=== PATIENT | female | born 1970 | race African-American/Black ===

== ENCOUNTER 2021-01-31 05:23 | Emergency (ER) | payer MEDICAID, OTHER ==
[~2021-01-31] VITALS: Ht 165.1 cm; Wt 89.4 kg
[2021-01-31] MEDS ORDERED: MAG HYDROX/AL HYDROX/SIMETH 30 ML UDC ONE (05:37)
--- NOTE | 2021-01-31 05:39 | NUR ---
CARE INFORMATION ASSOCIATE AT BEDSIDE
[2021-01-31 05:51] LABS: BASOPHILS % (AUTO) 0.5 % (0.0-2.0); EOSINOPHILS % (AUTO) 1.5 % (0.0-6.0); HEMATOCRIT 36 % (33-45); HEMOGLOBIN 11.8 g/dL (11.5-14.8); LYMPHOCYTES # (AUTO) 2.2 K/uL (0.8-4.8); LYMPHOCYTES % (AUTO) 29.2 % (20.0-44.0); MEAN CORPUSCULAR HGB CONC 33 g/dl (31.0-36.0); MEAN CORPUSCULAR VOLUME 86 fL (82-100); MONOCYTES # (AUTO) 0.5 K/uL (0.1-1.30); MONOCYTES % (AUTO) 6.4 % (2.0-12.0); NEUTROPHILS # (AUTO) 4.7 K/uL (1.8-8.9); NEUTROPHILS % (AUTO) 62.4 % (43.0-81.0); PLATELET COUNT (AUTO) 320 K/uL (150-450); RED BLOOD CELL COUNT(AUTO) 4.21 MIL/uL (4.0-5.2); WHITE BLOOD COUNT (AUTO) 7.5 K/uL (4.3-11.0)
[2021-01-31] MEDS ORDERED: MAG HYDROX/AL HYDROX/SIMETH 30 ML UDC PO ONE (06:00)
[2021-01-31 06:04] LABS: ALANINE AMINOTRANSFERASE 18 U/L (12-78); ALBUMIN 3.4 g/dL (3.4-5.0); ALKALINE PHOSPHATASE 63 U/L (46-116); ASPARTATE AMINOTRANSFERASE 12 U/L (15-37); BILIRUBIN,DIRECT 0.1 mg/dL (0.0-0.2); BILIRUBIN,TOTAL 0.2 mg/dL (0.2-1.0); CALCIUM, SERUM 8.6 mg/dL (8.5-10.1); CARBON DIOXIDE 27 mmol/L (21-32); CHLORIDE 107 mmol/L (98-107); CREATININE 0.8 mg/dL (0.6-1.3); GLUCOSE 99 mg/dL (74-106); SODIUM SERUM 140 mmol/L (136-145); TOTAL PROTEIN, SERUM 7.3 g/dL (6.4-8.2); UREA NITROGEN, BLOOD 15 mg/dL (7-18)
[2021-01-31] MEDS ORDERED: FAMO-131 PO (07:05)
[2021-01-31] MEDS ORDERED: ONDA4TAB5 PO (07:05)
[2021-01-31 07:11] VITALS: BP 127/72
--- NOTE | 2021-01-31 07:11 | NUR ---
Patient discharged to home in stable condition. Written and verbal after care instructions given. Patient verbalizes understanding of instruction.
== END 2021-01-31 07:11 | disposition home or self-care (01) ==
LOC: ER 05:24
DX: K80.20 Calculus of gallbladder without cholecystitis without obstruction (principal); Z90.89 Acquired absence of other organs
CPT/HCPCS: 36415; 71045-TC; 76705-TC; 80048-TC; 80076-TC; 83690-TC; 84484-TC; 85025-TC

== ENCOUNTER 2022-01-24 21:24 | Emergency (ER) | payer MEDICAID ==
[~2022-01-24] VITALS: Ht 165.1 cm; Wt 83.9 kg
[~2022-01-24 21:24] MED LIST: FAMO-131 PO; ONDA4TAB5 PO
--- NOTE | 2022-01-24 21:35 | NUR ---
[id number] FROM HOME C/O MID UPPER ABD PAIN X 30 MIN RAD TO RIGHT FLANK. 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 PT IS A/O X 4 RR EVEN AND UNALBORED, NO SOB NOTED. PATIENT TAKEN TO ER BED 09. PATIENT CONNECTED TO ALL MONITORS.
--- NOTE | 2022-01-24 21:39 | NUR ---
URINE COLLECTED AND SENT TO LAB
--- NOTE | 2022-01-24 21:44 | NUR ---
PT SEEN BY DR. NICOLE PROCTOR
[2022-01-24] MEDS ORDERED: HYDROMORPHONE 1 MG/1 ML DISP.SYRIN ONE (21:49)
[2022-01-24] MEDS ORDERED: ONDANSETRON HCL/PF 4 MG/2 ML VIAL ONE (21:49)
--- NOTE | 2022-01-24 21:51 | NUR ---
NINFA ORTEGA [phone]
--- NOTE | 2022-01-24 21:54 | NUR ---
EMT AT PT'S BEDSIDE FOR EKG
--- NOTE | 2022-01-24 21:56 | NUR ---
LENS ASSORTER AT PT'S BEDSIDE
[2022-01-24] MEDS ORDERED: ONDANSETRON HCL/PF 4 MG/2 ML VIAL IVP ONE (22:00)
[2022-01-24] MEDS ORDERED: HYDROMORPHONE INJ 2 MG/ML DISP.SYRIN IV ONE (22:00)
[2022-01-24 22:10] LABS: BASOPHILS % (AUTO) 0.3 % (0.0-2.0); EOSINOPHILS % (AUTO) 1.3 % (0.0-6.0); HEMATOCRIT 37 % (33-45); HEMOGLOBIN 12.1 g/dL (11.5-14.8); LYMPHOCYTES # (AUTO) 3.1 K/uL (0.8-4.8); LYMPHOCYTES % (AUTO) 35.3 % (20.0-44.0); MEAN CORPUSCULAR HGB CONC 33 g/dl (31.0-36.0); MEAN CORPUSCULAR VOLUME 85 fL (82-100); MONOCYTES # (AUTO) 0.6 K/uL (0.1-1.30); MONOCYTES % (AUTO) 7.1 % (2.0-12.0); NEUTROPHILS # (AUTO) 4.9 K/uL (1.8-8.9); PLATELET COUNT (AUTO) 313 K/uL (150-450); RED BLOOD CELL COUNT(AUTO) 4.31 MIL/uL (4.0-5.2); WHITE BLOOD COUNT (AUTO) 8.7 K/uL (4.3-11.0)
--- NOTE | 2022-01-24 22:10 | NUR ---
US TECH AT PT'S BEDSIDE
[2022-01-24 22:26] LABS: ALANINE AMINOTRANSFERASE 19 U/L (12-78); ALBUMIN 3.9 g/dL (3.4-5.0); ALKALINE PHOSPHATASE 70 U/L (46-116); ASPARTATE AMINOTRANSFERASE 15 U/L (15-37); BILIRUBIN,DIRECT 0.1 mg/dL (0.0-0.2); BILIRUBIN,TOTAL 0.3 mg/dL (0.2-1.0); CALCIUM, SERUM 9.1 mg/dL (8.5-10.1); CARBON DIOXIDE 28 mmol/L (21-32); CREATININE 0.9 mg/dL (0.6-1.3); GLUCOSE 127 mg/dL (74-106); LIPASE 103 U/L (73-393); TOTAL PROTEIN, SERUM 8.5 g/dL (6.4-8.2); UREA NITROGEN, BLOOD 10 mg/dL (7-18)
[2022-01-24 22:29] LABS: BILIRUBIN,URINE NEGATIVE (NEGATIVE); COLOR,URINE YELLOW (YELLOW); LEUKOCYTE ESTERASE ,URINE NEGATIVE (NEGATIVE); NITRITE, URINE NEGATIVE (NEGATIVE); PROTEIN,URINE NEGATIVE (NEGATIVE); UGLUCOSE NEGATIVE (NEGATIVE); UROBILINOGEN,URINE 0.2 EU/dL (0.2)
[2022-01-24 22:59] LABS: CHLORIDE 103 mmol/L (98-107); POTASSIUM 3.2 mmol/L (3.5-5.1); SODIUM SERUM 139 mmol/L (136-145)
[2022-01-24] MEDS ORDERED: IOHEXOL-350 100 ML VIAL IV ONE (23:54)
[2022-01-24] MEDS ORDERED: IV NS 0.9% 250 ML IV ONE (23:55)
--- NOTE | 2022-01-25 00:15 | NUR ---
PT TAKEN TO RADIOLOGY FOR CTA
--- NOTE | 2022-01-25 01:30 | NUR ---
CALLED [facility] FOR CT READ
--- NOTE | 2022-01-25 03:11 | NUR ---
re called stat rad
[2022-01-25] MEDS ORDERED: TRAM50TA2 PO (03:35)
[2022-01-25] MEDS ORDERED: IBUP-1955 PO (03:35)
--- NOTE | 2022-01-25 03:49 | NUR ---
Patient discharged to home in stable condition. RX Written and verbal after care instructions given. Patient verbalizes understanding of instruction. IV removed. Catheter intact and site benign. Pressure and 4x4 applied to site. No bleeding noted. PT ambulatory with a steady gait
[2022-01-25 03:50] VITALS: BP 119/83
[2022-01-27] MEDS ORDERED: PANT40TA2 PO (12:12)
== END 2022-01-25 03:50 | disposition home or self-care (01) ==
LOC: ER 21:25
DX: R07.89 Other chest pain (principal); K80.50 Calculus of bile duct without cholangitis or cholecystitis without obstruction; Z90.89 Acquired absence of other organs; Z60.2 Problems related to living alone; Z79.899 Other long term (current) drug therapy
CPT/HCPCS: 99285; 96374; 71275; 76705; 71045; 96375; 93005; 85025; 80048; 83690; 80076; 85378; 81003; 36415 ×2; 84484 ×2; J2405; J7050; Q9967; J1170

== ENCOUNTER 2022-01-25 09:29 | Inpatient (IN) | payer MEDICAID ==
[~2022-01-25] VITALS: Ht 165.1 cm; Wt 83.9 kg
[~2022-01-25 09:29] MED LIST changes: +IBUP-1955 PO; +TRAM50TA2 PO
--- NOTE | 2022-01-25 09:35 | NUR ---
DR SPAULDING AT BEDSIDE
[2022-01-25] MEDS ORDERED: PANTOPRAZOLE 40 MG VIAL ONE (09:44)
[2022-01-25] MEDS ORDERED: ONDANSETRON HCL/PF 4 MG/2 ML VIAL ONE (09:44)
[2022-01-25] MEDS ORDERED: HYDROMORPHONE 1 MG/1 ML DISP.SYRIN ONE (09:45)
--- NOTE | 2022-01-25 09:51 | NUR ---
pain meds given as ordered by Dr. Molina
--- NOTE | 2022-01-25 09:57 | NUR ---
KIN SON [phone]
[2022-01-25] MEDS ORDERED: PANTOPRAZOLE 40 MG VIAL IV ONE (10:00)
[2022-01-25] MEDS ORDERED: ONDANSETRON HCL/PF 4 MG/2 ML VIAL IVP ONE (10:00)
[2022-01-25] MEDS ORDERED: HYDROMORPHONE INJ 2 MG/ML DISP.SYRIN IV ONE (10:00)
[2022-01-25] MEDS ORDERED: IV NS 0.9% 1,000 ML BAG IV ONE (10:00)
--- NOTE | 2022-01-25 10:28 | NUR ---
PT TAKEN TO CT VIA I[facility]
[2022-01-25 10:29] LABS: BASOPHILS % (AUTO) 0.3 % (0.0-2.0); EOSINOPHILS % (AUTO) 0.4 % (0.0-6.0); HEMATOCRIT 41 % (33-45); HEMOGLOBIN 13.1 g/dL (11.5-14.8); LYMPHOCYTES # (AUTO) 1.1 K/uL (0.8-4.8); MEAN CORPUSCULAR HGB CONC 32 g/dl (31.0-36.0); MEAN CORPUSCULAR VOLUME 87 fL (82-100); MONOCYTES # (AUTO) 0.6 K/uL (0.1-1.30); MONOCYTES % (AUTO) 6.7 % (2.0-12.0); NEUTROPHILS # (AUTO) 7.4 K/uL (1.8-8.9); NEUTROPHILS % (AUTO) 80.6 % (43.0-81.0); PLATELET COUNT (AUTO) 276 K/uL (150-450); RED BLOOD CELL COUNT(AUTO) 4.67 MIL/uL (4.0-5.2); WHITE BLOOD COUNT (AUTO) 9.1 K/uL (4.3-11.0)
--- NOTE | 2022-01-25 10:41 | NUR ---
PT BROUGHT BACK FROM CT VIA I[facility]
[2022-01-25 10:50] LABS: ALBUMIN 3.7 g/dL (3.4-5.0); BILIRUBIN,DIRECT 0.3 mg/dL (0.0-0.2); BILIRUBIN,TOTAL 0.8 mg/dL (0.2-1.0); CALCIUM, SERUM 9.2 mg/dL (8.5-10.1); CREATININE 0.8 mg/dL (0.6-1.3); TOTAL PROTEIN, SERUM 8.3 g/dL (6.4-8.2)
[2022-01-25 10:57] LABS: POTASSIUM 3.9 mmol/L (3.5-5.1)
[2022-01-25] MEDS ORDERED: PIPERACILLIN /TAZOBACTAM 3.375 G in IV D5W 50 ML IV ONE (12:00)
[2022-01-25] MEDS ORDERED: PIPERACILLIN /TAZOBACTAM 3.375 G VIAL IV ONE (12:00)
--- NOTE | 2022-01-25 12:30 | NUR ---
COVID TEST COLLECTED AND SENT
--- NOTE | 2022-01-25 12:34 | NUR ---
LVM FOR GI TEACHER DANCING.
--- NOTE | 2022-01-25 12:46 | NUR ---
ER MD DR. SPAULDING AND GI MANAGER LOAN DR. SPIVEY CONSULT
--- NOTE | 2022-01-25 13:00 | NUR ---
EPIC CUSTOMER SERVICE AGENT PAGED
--- NOTE | 2022-01-25 14:22 | NUR ---
BED GIVEN [id number] AUDRA
--- NOTE | 2022-01-25 14:30 | NUR ---
[facility]
--- NOTE | 2022-01-25 14:37 | NUR ---
REPORT GIVEN TO AUDRA MERA OF MED-SURG
--- NOTE | 2022-01-25 14:58 | NUR ---
PT TRASNPORTED TO MED SURG FLOOR IN STABLE CONDITION, PT ABLE TO AMBULATE ON HER OWN.
--- NOTE | 2022-01-25 15:00 | NUR ---
RN NOTES RECEIVED PATIENT FROM EMERGENCY DEPARTMENT IN STABLE CONDITION. TRANSFERRED VIA GURNEY. PATIENT ON RA TOLERATING WELL WITH NO S/SX OF RESP DISTRESS OR SOB NOTED. NO COMPLAINT OF PAIN AT THIS TIME. A/O X4. GAMBIAN AND JORDANIAN SPEAKING. SKIN CLEAR AND INTACT. WARM TO TOUCH AND NORMAL COLOR APPROPRIATE TO RACE. L FA G#20 INTACT AND PATENT. SAFETY MEASURES IN PLACE. BED IN LOWEST POSITION, WHEELS LOCKED, SIDE RAILS UP X2, CALL LIGHT WITHIN REACH. WILL CONTINUE TO MONITOR
[2022-01-25 15:45] VITALS: BP 122/69
[2022-01-25] MEDS ORDERED: ONDANSETRON HCL/PF 4 MG/2 ML VIAL IVP PRN (16:30)
[2022-01-25] MEDS ORDERED: IV D5/0.45 NACL 1,000 ML IV PRN (16:30)
--- NOTE | 2022-01-25 17:30 | NUR ---
RN NOTES PATIENT PLACED ON NPO.
[2022-01-25] MEDS ORDERED: PIPERACILLIN /TAZOBACTAM 4.5 G in IV D5W 50 ML IV SCH (18:00)
--- NOTE | 2022-01-25 18:00 | NUR ---
RN NOTES PATIENT STARTED ON FLUIDS. D5 1/2 NS @ 75ML/HR, LEFT FA G#20 INFUSING WELL. WILL CONTINUE TO MONITOR
--- NOTE | 2022-01-25 19:20 | NUR ---
MS/RN OPENING NOTE RECEIVED PATIENT RESTING IN BED. AWAKE, ALERT AND ORIENTED X 4. ABLE TO MAKE NEEDS KNOWN. C/O ABDOMINAL PAIN 01/22 - WILL ADMINISTER PRN PAIN MEDICATION PER MD ORDER. CONTINUES ON ROOM AIR WITH NO S/SX OF RESPIRATORY DISTRESS NOTED. IV ACCESS TO LEFT FOREARM #20G INTACT AND PATENT. CONTINUES ON IVF D5 1/2 NS @ 75ML/HR. CONTINUES ON IV ABX. CONTINUES ON NPO STATUS. PATIENT IS AMBULATORY WITH STEADY GAIT. CALL LIGHT WITHIN REACH. ASPIRATION, FALL AND SAFETY PRECAUTIONS MAINTAINED. ALL NEEDS ATTENDED TO AT THIS TIME.
--- NOTE | 2022-01-25 19:29 | NUR ---
RN NOTES ENDORSED REPORT TO BUSINESS DEVELOPMENT REPRESENTATIVE NURSE FOR RYAN
[2022-01-25] MEDS: MORPHINE SULFATE INJ 2 MG/ML DISP.SYRIN IV PRN (19:39)
--- NOTE | 2022-01-25 19:45 | NUR ---
MS/RN NOTE ADMINISTERED PRN MORPHINE PER MD ORDERS FOR ABDOMINAL PAIN 02/22. ALL NEEDS ATTENDED TO AT THIS TIME.
[2022-01-25 20:00] VITALS: BP 122/79
[2022-01-25] MEDS: PIPERACILLIN /TAZOBACTAM 3.375 G in IV D5W 100 ML IV SCH (20:20)
--- NOTE | 2022-01-25 21:15 | NUR ---
MS/RN NOTE OBTAINED CONSENT FOR POSSIBLE HIDA SCAN TOMORROW AND PLACED IN CHART. PATIENT CURRENTLY ON NPO STATUS.
[2022-01-26] MEDS: PIPERACILLIN /TAZOBACTAM 3.375 G in IV D5W 100 ML IV SCH ×3 (04:18→20:27)
--- NOTE | 2022-01-26 05:30 | NUR ---
MS/RN NOTE PATIENT WITH C/O HEADACHE WITH PAIN LEVEL 3/10. PATIENT DOES NOT WANT MORPHINE AT THIS TIME. CONTINUES ON NPO STATUS. PROVIDED HEAT PACK PER PATIENT REQUEST. ALL NEEDS ATTENDED TO AT THIS TIME.
--- NOTE | 2022-01-26 05:45 | NUR ---
MS/RN NOTE PATIENT WITH C/O NAUSEA. NO VOMITING NOTED. ADMINISTERED PRN ZOFRAN PER MD ORDER. ALL NEEDS ATTENDED TO AT THIS TIME.
[2022-01-26] MEDS: MORPHINE SULFATE INJ 2 MG/ML DISP.SYRIN IV PRN (06:08)
--- NOTE | 2022-01-26 06:15 | NUR ---
MS/RN NOTE PATIENT WITH C/O INCREASED HEADACHE PAIN. PAIN SCALE RATING NOW 8/10. ADMINISTERED PRN MORPHINE PER MD ORDERS.
--- NOTE | 2022-01-26 06:20 | NUR ---
MS/RN CLOSING NOTE PATIENT CURRENTLY SLEEPING IN BED. ALERT AND ORIENTED X 4. ABLE TO MAKE NEEDS KNOWN. DENIES PAIN AT THIS TIME. CONTINUES ON ROOM AIR WITH NO S/SX OF RESPIRATORY DISTRESS NOTED. IV ACCESS TO LEFT FOREARM #20G INTACT AND PATENT. CONTINUES ON IVF D5 1/2 NS @ 75ML/HR. CONTINUES ON IV ABX. CONTINUES ON NPO STATUS. PATIENT IS AMBULATORY WITH STEADY GAIT. CALL LIGHT WITHIN REACH. ASPIRATION, FALL AND SAFETY PRECAUTIONS MAINTAINED. ALL NEEDS ATTENDED TO AT THIS TIME. WILL ENDORSE PLAN OF CARE TO ONCOMING SHIFT RN.
[2022-01-26 06:37] LABS: BASOPHILS % (AUTO) 0.7 % (0.0-2.0); EOSINOPHILS % (AUTO) 1.7 % (0.0-6.0); HEMATOCRIT 36 % (33-45); HEMOGLOBIN 11.7 g/dL (11.5-14.8); LYMPHOCYTES # (AUTO) 1.5 K/uL (0.8-4.8); LYMPHOCYTES % (AUTO) 30.8 % (20.0-44.0); MEAN CORPUSCULAR HGB CONC 33 g/dl (31.0-36.0); MEAN CORPUSCULAR VOLUME 85 fL (82-100); MONOCYTES # (AUTO) 0.4 K/uL (0.1-1.30); MONOCYTES % (AUTO) 7.8 % (2.0-12.0); NEUTROPHILS # (AUTO) 2.9 K/uL (1.8-8.9); PLATELET COUNT (AUTO) 279 K/uL (150-450); RED BLOOD CELL COUNT(AUTO) 4.21 MIL/uL (4.0-5.2); WHITE BLOOD COUNT (AUTO) 4.9 K/uL (4.3-11.0)
[2022-01-26 06:56] LABS: CALCIUM, SERUM 8.8 mg/dL (8.5-10.1); CREATININE 0.8 mg/dL (0.6-1.3); MAGNESIUM 2.1 mg/dL (1.8-2.4); PHOSPHORUS 3.7 mg/dL (2.5-4.9); POTASSIUM 3.6 mmol/L (3.5-5.1)
[2022-01-26 07:20] LABS: THYROID STIMULATING HORMONE 2.58 uIU/mL (0.358-3.74)
--- NOTE | 2022-01-26 07:29 | NUR ---
MS/RN OPENING NOTE RECEIVED PATIENT RESTING IN BED. PATIENT IS ALERT AND ORIENTED X 4. ABLE TO MAKE NEEDS KNOWN . CONTINUES ON ROOM AIR NO S/SX OF RESPIRATORY DISTRESS NOTED. IV ACCESS TO LEFT FOREARM #20G INTACT AND PATENT. CONTINUES ON IVF D5 1/2 NS @ 75ML/HR. NPO . PATIENT IS AMBULATORY . ALL SAFETY MEASURES IN PLACE. CALL LIGHT WITHIN REACH. ASPIRATION, FALL AND SAFETY PRECAUTIONS MAINTAINED. WILL CONTINUE TO MONITOR.
[2022-01-26 08:00] VITALS: BP 122/67
[2022-01-26] MEDS: PANTOPRAZOLE 40 MG VIAL IV SCH (08:03)
[2022-01-26] MEDS: ACETAMINOPHEN 650 MG/20.3 ML UDC NG PRN ×2 (09:30→16:12)
[2022-01-26] MEDS ORDERED: HYDROCODONE/APAP 5/325MG TABLET PO PRN (09:30)
[2022-01-26] MEDS ORDERED: METOCLOPRAMIDE HCL 10 MG/2 ML VIAL IV PRN (09:30)
[2022-01-26] MEDS: Potassium Chloride 10 MEQ in IV D5/ 0.9% NACL 1,000 ML IV SCH ×2 (09:53→20:27)
[2022-01-26 16:07] VITALS: BP_SYST 109; BP_SYST 139; BP_DIAS 62; BP_DIAS 68
--- NOTE | 2022-01-26 18:24 | NUR ---
MS/RN CLOSING NOTE PATIENT RESTING IN BED. PATIENT IS ALERT AND ORIENTED X 4. ABLE TO MAKE NEEDS KNOWN . CONTINUES ON ROOM AIR NO S/SX OF RESPIRATORY DISTRESS NOTED. IV ACCESS TO LEFT FOREARM #20G INTACT AND PATENT. CONTINUES ON IVF KCL 10 MEQ D5 NS @ 100 ML/HR. NPO . PATIENT IS AMBULATORY .HIDA TEST DONE. HUSBANDAT HER BED SIDE. ALL SAFETY MEASURES IN PLACE. CALL LIGHT WITHIN REACH. ASPIRATION, FALL AND SAFETY PRECAUTIONS MAINTAINED. WILL ENDORSE FOR RYAN.
--- NOTE | 2022-01-26 19:20 | NUR ---
MS/RN OPENING NOTE RECEIVED PATIENT RESTING IN BED. AWAKE, ALERT AND ORIENTED X 4. ABLE TO MAKE NEEDS KNOWN. FAMILY AT BEDSIDE. CONTINUES ON ROOM AIR WITH NO S/SX OF RESPIRATORY DISTRESS NOTED. IV ACCESS TO LEFT FOREARM #20G INTACT AND PATENT. CONTINUES ON IVF D5 NS WITH 20MEQ KCL @ 100ML/HR. CONTINUES ON IV ABX. CONTINUES ON NPO STATUS. PATIENT IS AMBULATORY WITH STEADY GAIT. CALL LIGHT WITHIN REACH. ASPIRATION, FALL AND SAFETY PRECAUTIONS MAINTAINED. ALL NEEDS ATTENDED TO AT THIS TIME.
[2022-01-26 20:00] VITALS: BP 148/75
[2022-01-26] MEDS ORDERED: ZOLPIDEM TARTRATE 5 MG TABLET PO PRN (22:00)
[2022-01-27] MEDS: ACETAMINOPHEN 650 MG/20.3 ML UDC NG PRN (04:22)
[2022-01-27] MEDS: PIPERACILLIN /TAZOBACTAM 3.375 G in IV D5W 100 ML IV SCH ×2 (04:22→14:59)
--- NOTE | 2022-01-27 04:43 | NUR ---
MS/RN NOTE PATIENT WITH C/O PAIN TO LEFT FOREARM IV SITE. NO REDNESS OR INFILTRATION NOTED. PATIENT REQUESTING TO HAVE IV SITE CHANGED. INSERTED NEW IV #20G TO RIGHT FOREARM. DISCONTINUED IV TO LEFT FOREARM WITH PRESSURE DRESSING APPLIED. MINIMAL DRAINAGE NOTED. PATIENT TOLERATED WELL.
[2022-01-27] MEDS: Potassium Chloride 10 MEQ in IV D5/ 0.9% NACL 1,000 ML IV SCH (05:52)
[2022-01-27 06:17] LABS: BASOPHILS % (AUTO) 0.4 % (0.0-2.0); EOSINOPHILS % (AUTO) 2.4 % (0.0-6.0); HEMATOCRIT 34 % (33-45); HEMOGLOBIN 11.4 g/dL (11.5-14.8); LYMPHOCYTES # (AUTO) 1.5 K/uL (0.8-4.8); LYMPHOCYTES % (AUTO) 27.6 % (20.0-44.0); MEAN CORPUSCULAR HGB CONC 33 g/dl (31.0-36.0); MEAN CORPUSCULAR VOLUME 85 fL (82-100); MONOCYTES # (AUTO) 0.4 K/uL (0.1-1.30); MONOCYTES % (AUTO) 7.4 % (2.0-12.0); NEUTROPHILS # (AUTO) 3.3 K/uL (1.8-8.9); NEUTROPHILS % (AUTO) 62.2 % (43.0-81.0); PLATELET COUNT (AUTO) 282 K/uL (150-450); RED BLOOD CELL COUNT(AUTO) 4.05 MIL/uL (4.0-5.2); WHITE BLOOD COUNT (AUTO) 5.4 K/uL (4.3-11.0)
--- NOTE | 2022-01-27 06:20 | NUR ---
MS/RN CLOSING NOTE PATIENT CURRENTLY SLEEPING IN BED. ALERT AND ORIENTED X 4. ABLE TO MAKE NEEDS KNOWN. DENIES PAIN AT THIS TIME. CONTINUES ON ROOM AIR WITH NO S/SX OF RESPIRATORY DISTRESS NOTED. IV ACCESS TO RIGHT FOREARM #20G INTACT AND PATENT. CONTINUES ON IVF D5 NS WITH 10MEQ KCL @ 100ML/HR. CONTINUES ON IV ABX. CONTINUES ON NPO STATUS. PATIENT IS AMBULATORY WITH STEADY GAIT. CALL LIGHT WITHIN REACH. ASPIRATION, FALL AND SAFETY PRECAUTIONS MAINTAINED. WILL ENDORSE PLAN OF CARE TO ONCOMING SHIFT RN.
--- NOTE | 2022-01-27 07:30 | NUR ---
RN OPENING NOTE PATIENT IS IN BED AWAKE, ALERT ORIENTED X 4. ON ROOM AIR, WITH OXYGEN SATURATION AT 96%. DENIES PAIN, BREATHING UNLABORED AND NOT IN ANY FORM OF DISTRESS. CURRENTLY ON NPO PER PATIENT REQUEST SHE WOULD LIKE TO SPEAK WITH HER PHYSICIAN FIRST TO CLARIFY SURGICAL PLANS. I EXPLAINED TO HER THERE IS NO PLAN YET FOR SURGERY. IV ON RIGHT FOREARM INTACT AND PATENT, NO SIGNS OF INFILTRATION NOTED. BED IS LOCKED IN LOWEST POSITION, 3 SIDE RAILS UP, CALL LIGHT WITHIN REACH. WILL CONTINUE TO MONITOR THROUGHOUT SHIFT.
[2022-01-27 08:00] VITALS: BP 104/58
[2022-01-27 08:06] LABS: ALBUMIN 3.3 g/dL (3.4-5.0); BILIRUBIN,TOTAL 0.6 mg/dL (0.2-1.0); CALCIUM, SERUM 8.5 mg/dL (8.5-10.1); CREATININE 0.9 mg/dL (0.6-1.3); MAGNESIUM 2.1 mg/dL (1.8-2.4); TOTAL PROTEIN, SERUM 7.1 g/dL (6.4-8.2)
[2022-01-27 08:24] LABS: POTASSIUM 3.2 mmol/L (3.5-5.1)
[2022-01-27] MEDS: PANTOPRAZOLE 40 MG VIAL IV SCH (08:46)
[2022-01-27 09:44] VITALS: BP 104/58
[2022-01-27] MEDS: POTASSIUM CL. PREMIX PERIPHER. 50 ML IV SCH ×4 (10:38→13:55)
[2022-01-27] MEDS ORDERED: PANT40TA2 PO (12:12)
[2022-01-27] MEDS ORDERED: POTASSIUM CHLORIDE 20 MEQ TAB.PRT.SR PO ONE (12:30)
[2022-01-27 16:00] VITALS: BP 115/69
--- NOTE | 2022-01-27 17:00 | NUR ---
RN CLOSING NOTE PATIENT IS DISCHARGED TO HOME IN STABLE CONDITION. IV LINE DISCONTINUED AND CANNULA IS INTACT. IV SITE COVERED WITH DRY DRESSING. PATIENT WAS ACCOMPANIED TO LOBBY AND WAS ASSISTED TO HER CAR DRIVEN BY HER . DISCHARGE INSTRUCTIONS GIVEN TO PATIENT.. BELONGINGS CHECKLIST COMPLETED AND SIGNED BY PATIENT. DISCHARGE VITAL SIGNS: BP 115/69, MI 66, RR 18 O2 SAT 97%.
== END 2022-01-27 16:00 | disposition home or self-care (01) ==
LOC: ER 09:32 → MED 14:54
PROVIDERS: ATTEND Internal Medicine
DX: K80.70 Calculus of gallbladder and bile duct without cholecystitis without obstruction (principal); E66.9 Obesity, unspecified; K82.8 Other specified diseases of gallbladder; E78.5 Hyperlipidemia, unspecified; Z20.822 Contact with and (suspected) exposure to COVID-19; Z68.30 Body mass index [BMI] 30.0-30.9, adult; Z90.49 Acquired absence of other specified parts of digestive tract; Z88.8 Allergy status to other drugs, medicaments and biological substances; Z91.018 Allergy to other foods; Z91.013 Allergy to seafood
CPT/HCPCS: 36415; 71045-TC; 74181-TC; 78226; 80048-TC; 80053-TC; 80061-TC; 80076-TC; 83690-TC; 83735-TC; 84100-TC; 84443-TC; 84703-TC; 85025-TC; 87081-TC; A9537; C9113; C9803; G0378; J1170; J2270; J2405; J2543; J2765; J3480; J3490; J7030; J7042; J7060